=== PATIENT | male | born 1975 | race American Indian/Alaskan Native ===

== ENCOUNTER 2017-04-24 12:47 | Emergency (ER) | payer MEDICAID, OTHER ==
[~2017-04-24] VITALS: Ht 180.3 cm; Wt 91.0 kg
[2017-04-24] MEDS ORDERED: MAALOX/HYOSCYAMINE/LIDOCAINE 45 ML BTL ONE (13:25)
[2017-04-24] MEDS ORDERED: ONDANSETRON 2MG/ML, 2ML ONE (13:25)
[2017-04-24] MEDS ORDERED: SODIUM CHLORIDE FLUSH 10ML SYR IVF ONE (13:30)
[2017-04-24] MEDS ORDERED: MAALOX/HYOSCYAMINE/LIDOCAINE 45 ML BTL PO ONE (13:30)
[2017-04-24] MEDS ORDERED: ONDANSETRON 2MG/ML, 2ML IVPush ONE (13:30)
[2017-04-24] MEDS ORDERED: SODIUM CHLORIDE 0.9% 1,000ML IVBOLUS ONE (13:30)
[2017-04-24 13:46] LABS: HEMATOCRIT 53.6 % (39.2-51.8); HEMOGLOBIN 17.9 g/dL (13.7-18.0)
[2017-04-24 14:02] LABS: ASPARTATE AMINO TRANSFERASE 19 U/L (15-37); BLOOD UREA NITROGEN 8 mg/dL (7-18)
[2017-04-24 14:09] LABS: DIFF TOTAL CELLS COUNTED 100 CELL DIFF
[2017-04-24 14:11] LABS: VERIFY COUNTS? YES
[2017-04-24 15:33] VITALS: BP 140/85
== END 2017-04-24 16:19 | disposition home or self-care (01) ==
LOC: ED 14:09
DX: R10.13 Epigastric pain (principal); R11.10 Vomiting, unspecified; I10 Essential (primary) hypertension
CPT/HCPCS: 36415; 76700; 80053; 81001; 83690; 85025; 93005; 96361; 96374; 99285; J2405; J7030